=== PATIENT | male | born 1940 | race Caucasian/White ===

== ENCOUNTER 2018-04-16 14:55 | Emergency (ER) | payer OTHER ==
[~2018-04-16] VITALS: Ht 172.7 cm; Wt 81.7 kg
[~2018-04-16 14:55] MED LIST: AUGMENTIN 875875 MG PO; CARDURA4 MG PO; CIPROFLOXACIN500 M3 PO; LISINOPRIL40 MG PO; TAMSULOSIN HCL0.4 M1 PO
== END 2018-04-16 16:45 | disposition home or self-care (01) ==
LOC: ER 14:55
DX: S61.211A Laceration without foreign body of left index finger without damage to nail, initial encounter (principal); I10 Essential (primary) hypertension; W26.8XXA Contact with other sharp object(s), not elsewhere classified, initial encounter; Y93.89 Activity, other specified; Y92.89 Other specified places as the place of occurrence of the external cause; Y99.8 Other external cause status